=== PATIENT | female | born 1990 | race Caucasian/White ===

== ENCOUNTER 2019-06-14 18:00 | Emergency (ER) | payer MEDICAID ==
[~2019-06-14] VITALS: Ht 177.8 cm; Wt 72.6 kg
[2019-06-14 18:23] VITALS: BP 116/84
== END 2019-06-14 22:09 | disposition left against medical advice (07) ==
LOC: ER 18:04
DX: R10.9 Unspecified abdominal pain (principal); R11.2 Nausea with vomiting, unspecified; Z53.21 Procedure and treatment not carried out due to patient leaving prior to being seen by health care provider

== ENCOUNTER 2024-04-12 09:34 | Emergency (ER) | payer MEDICAID ==
[~2024-04-12] VITALS: Ht 162.6 cm; Wt 55.5 kg
[2024-04-12 10:00] VITALS: TEMP 98.7
[2024-04-12 10:25] VITALS: BP 148/82; PULSE 102; RESP 16; O2SAT 98
[2024-04-12] MEDS: ONDANSETRON ODT 4 MG TAB PO ONE (10:37)
[2024-04-12] MEDS ORDERED: ZOFR4T PO (11:08)
== END 2024-04-12 15:53 | disposition home or self-care (01) ==
LOC: ER 09:41
DX: T18.8XXA Foreign body in other parts of alimentary tract, initial encounter (principal); R11.2 Nausea with vomiting, unspecified; F17.210 Nicotine dependence, cigarettes, uncomplicated; F12.10 Cannabis abuse, uncomplicated; W44.8XXA Other foreign body entering into or through a natural orifice, initial encounter; Y93.89 Activity, other specified; Y92.89 Other specified places as the place of occurrence of the external cause; Y99.8 Other external cause status
CPT/HCPCS: 74018; 99283; Q0162

== ENCOUNTER 2024-05-14 09:43 | Inpatient (IN) | payer MEDICAID ==
[~2024-05-14] VITALS: Ht 162.6 cm; Wt 60.1 kg
[~2024-05-14 09:43] MED LIST: ZOFR4T PO
[2024-05-14 10:05] VITALS: PULSE 87; RESP 12; O2SAT 97
[2024-05-14 10:59] LABS: Eosinophils # (auto) 0.2 10 ^3/uL (0-0.8); Lymphocytes % (auto) 22.1 % (10.0-50.0); Monocytes # (auto) 0.3 10 ^3/uL (0-1.3)
[2024-05-14 11:01] LABS: Basophils # (auto) 0.1 10 ^3/uL (0-0.2); Basophils % (auto) 1.4 % (0.0-2.0); Eosinophils % (auto) 3.2 % (0.0-7.0); Hematocrit 42.3 % (36.0-46.0); Hemoglobin 14.8 g/dL (12.2-16.2); Lymphocytes # (auto) 1.2 10 ^3/uL (0.4-5.4); Mean Corpuscular Hgb Conc. 35.1 g/dL (32.0-36.0); Mean Corpuscular Volume 99.7 fL (80.0-100.0); Neutrophils # (auto) 3.6 10 ^3/uL (1.6-8.6); Neutrophils % (auto) 68.3 % (37.0-80.0); Nucleated Red Blood Cells % 0.2 %; Platelet Count (auto) 246 10^3/uL (140-450); Red Blood Cells 4.24 10^6/uL (4.0-5.20); White Blood Cell 5.2 10^3/uL (4.4-10.8)
[2024-05-14 11:14] LABS: Alanine Aminotransferase 30 U/L (7-40); Albumin 4.2 g/dL (3.2-4.8); Alkaline Phosphatase 58 U/L (46-116); Anion Gap 6 (5-15); Aspartate Aminotransferase 30 U/L (13-40); BUN/Creatinine Ratio 11.9 (10.0-20.0); Blood Urea Nitrogen 10 mg/dL (9-23); Calcium 9.6 mg/dL (8.7-10.4); Carbon Dioxide 26 mmol/L (20-31); Chloride 107 mmol/L (98-107); Glucose 118 mg/dL (74-106); Potassium 3.7 mmol/L (3.5-5.1); Sodium 139 mmol/L (136-145)
[2024-05-14 11:15] LABS: Total Protein 6.7 g/dL (5.7-8.2)
[2024-05-14 12:00] LABS: Platelet Estimate Adequate; Stomatocytes Few
[2024-05-14] MEDS: PANTOPRAZOLE 40 MG/10 ML VIAL INJ IV ONE ×2 (12:01→15:00)
[2024-05-14 14:18] LABS: Urine Bacteria None Seen /hpf (None Seen)
[2024-05-14 14:25] LABS: Urine Blood 1+ /uL (Negative); Urine Clarity Turbid (Clear); Urine Color Yellow (Yellow); Urine Mucus FEW (None Seen); Urine Protein, UAD TRACE (Negative); Urine Specific Gravity 1.025 (1.001-1.035); Urine Urobilinogen 2 mg/dL (Negative); Urine WBC 3 /hpf (0 - 5)
[2024-05-14] MEDS ORDERED: NITROGLYCERIN 0.4 MG SL TAB SL PRN (15:00)
[2024-05-14] MEDS ORDERED: DOCUSATE SOD 100 MG CAP PO PRN (15:00)
[2024-05-14] MEDS: PANTOPRAZOLE 40 MG/10 ML VIAL INJ IV SCH (15:27)
[2024-05-14] MEDS: SODIUM CHLORIDE 0.9% 1,000 ML IV SCH (15:33)
[2024-05-14] MEDS: MORPHINE SULFATE INJ 2 MG/ml SYRG IV PRN (15:35)
[2024-05-14] MEDS: ONDANSETRON HCL 4 MG/2 ML VIAL IV PRN (15:36)
[2024-05-14 16:45] VITALS: BP 126/88; PULSE 55; RESP 16; TEMP 98; O2SAT 98
[2024-05-14 17:37] VITALS: O2SAT 96
[2024-05-14] MEDS ORDERED: ONDANSETRON HCL 4 MG/2 ML VIAL IV PRN (18:15)
[2024-05-14 20:00] VITALS: PULSE 56; RESP 19; O2SAT 98
[2024-05-14 22:40] LABS: Hematocrit 38.3 % (36.0-46.0); Hemoglobin 13.3 g/dL (12.2-16.2)
[2024-05-14 23:06] VITALS: BP 120/84; PULSE 56; RESP 19; TEMP 97.7; O2SAT 98
[2024-05-15 05:53] VITALS: BP 109/67; PULSE 70; RESP 20; TEMP 97.7; O2SAT 96
[2024-05-15 07:24] LABS: Basophils # (auto) 0 10 ^3/uL (0-0.2); Basophils % (auto) 0.9 % (0.0-2.0); Eosinophils # (auto) 0.2 10 ^3/uL (0-0.8); Eosinophils % (auto) 4.7 % (0.0-7.0); Hematocrit 36.9 % (36.0-46.0); Hemoglobin 13.1 g/dL (12.2-16.2); Lymphocytes # (auto) 1.4 10 ^3/uL (0.4-5.4); Lymphocytes % (auto) 28.6 % (10.0-50.0); Mean Corpuscular Hemoglobin 35.3 pg (28.0-32.0); Mean Corpuscular Hgb Conc. 35.4 g/dL (32.0-36.0); Mean Corpuscular Volume 99.5 fL (80.0-100.0); Monocytes # (auto) 0.3 10 ^3/uL (0-1.3); Monocytes % (auto) 6.1 % (0.0-12.0); Neutrophils # (auto) 2.8 10 ^3/uL (1.6-8.6); Neutrophils % (auto) 59.7 % (37.0-80.0); Platelet Count (auto) 200 10^3/uL (140-450); Red Blood Cells 3.71 10^6/uL (4.0-5.20); Red Cell Distribution Width 12.8 % (11.8-14.3); White Blood Cell 4.8 10^3/uL (4.4-10.8)
[2024-05-15 07:45] LABS: Alanine Aminotransferase 24 U/L (7-40); Albumin 3.5 g/dL (3.2-4.8); Alkaline Phosphatase 50 U/L (46-116); Anion Gap 6 (5-15); Aspartate Aminotransferase 20 U/L (13-40); Blood Urea Nitrogen 8 mg/dL (9-23); Calcium 8.6 mg/dL (8.7-10.4); Carbon Dioxide 25 mmol/L (20-31); Chloride 111 mmol/L (98-107); Glucose 83 mg/dL (74-106); Potassium 3.5 mmol/L (3.5-5.1); Sodium 142 mmol/L (136-145)
[2024-05-15 07:46] LABS: Bilirubin, Total 0.8 mg/dL (0.2-1.0); Total Protein 5.6 g/dL (5.7-8.2)
[2024-05-15 09:00] VITALS: BP 116/80; PULSE 54; RESP 22; TEMP 97.5; O2SAT 98
[2024-05-15 11:15] LABS: Hematocrit 35.6 % (36.0-46.0); Hemoglobin 12.4 g/dL (12.2-16.2)
[2024-05-15 13:00] VITALS: BP 117/77; PULSE 60; RESP 16; TEMP 98; O2SAT 98
[2024-05-15 17:00] VITALS: BP 106/75; PULSE 52; RESP 16; TEMP 97.5; O2SAT 95
[2024-05-15] MEDS: HYDROcodone-ACET 5/325MG TAB PO PRN (17:55)
[2024-05-15 20:00] VITALS: RESP 20
[2024-05-15 21:00] VITALS: BP 121/85; PULSE 50; RESP 20; TEMP 97.6; O2SAT 100
[2024-05-15 22:45] LABS: Hematocrit 35.1 % (36.0-46.0); Hemoglobin 12.1 g/dL (12.2-16.2)
[2024-05-16] VITALS (7 sets, daily range): BP systolic 101–147; BP diastolic 77–98; PULSE 52–71; RESP 16–20; TEMP 97.6–98.2; O2SAT 97–100
[2024-05-16 07:41] LABS: Basophils # (auto) 0 10 ^3/uL (0-0.2); Basophils % (auto) 0.8 % (0.0-2.0); Eosinophils # (auto) 0.2 10 ^3/uL (0-0.8); Eosinophils % (auto) 3.8 % (0.0-7.0); Hematocrit 36.6 % (36.0-46.0); Hemoglobin 12.9 g/dL (12.2-16.2); Lymphocytes # (auto) 1.3 10 ^3/uL (0.4-5.4); Mean Corpuscular Hemoglobin 35.2 pg (28.0-32.0); Mean Corpuscular Hgb Conc. 35.2 g/dL (32.0-36.0); Monocytes # (auto) 0.2 10 ^3/uL (0-1.3); Monocytes % (auto) 5.1 % (0.0-12.0); Neutrophils # (auto) 2.7 10 ^3/uL (1.6-8.6); Neutrophils % (auto) 60.3 % (37.0-80.0); Platelet Count (auto) 188 10^3/uL (140-450); Red Blood Cells 3.66 10^6/uL (4.0-5.20); White Blood Cell 4.5 10^3/uL (4.4-10.8)
[2024-05-16 07:49] LABS: Chloride 111 mmol/L (98-107); Potassium 3.8 mmol/L (3.5-5.1); Sodium 143 mmol/L (136-145)
[2024-05-16 07:50] LABS: Anion Gap 6 (5-15); Calcium 8.3 mg/dL (8.7-10.4); Carbon Dioxide 26 mmol/L (20-31)
[2024-05-16 07:55] LABS: BUN/Creatinine Ratio 5.9 (10.0-20.0); Blood Urea Nitrogen 5 mg/dL (9-23); Glucose 93 mg/dL (74-106)
[2024-05-17 01:00] VITALS: BP 134/73; PULSE 59; RESP 16; TEMP 97.8; O2SAT 98
[2024-05-17 05:00] VITALS: BP 130/79; PULSE 122; RESP 19; TEMP 100.3; O2SAT 95
[2024-05-17 07:52] LABS: Basophils # (auto) 0 10 ^3/uL (0-0.2); Eosinophils # (auto) 0.2 10 ^3/uL (0-0.8); Lymphocytes # (auto) 1.5 10 ^3/uL (0.4-5.4); Neutrophils # (auto) 3.3 10 ^3/uL (1.6-8.6); White Blood Cell 5.3 10^3/uL (4.4-10.8)
[2024-05-17 07:55] LABS: Basophils % (auto) 0.5 % (0.0-2.0); Eosinophils % (auto) 4.3 % (0.0-7.0); Hematocrit 34.7 % (36.0-46.0); Hemoglobin 12.4 g/dL (12.2-16.2); Lymphocytes % (auto) 28.4 % (10.0-50.0); Mean Corpuscular Hemoglobin 35.5 pg (28.0-32.0); Mean Corpuscular Hgb Conc. 35.8 g/dL (32.0-36.0); Mean Corpuscular Volume 99.1 fL (80.0-100.0); Monocytes # (auto) 0.3 10 ^3/uL (0-1.3); Monocytes % (auto) 4.9 % (0.0-12.0); Neutrophils % (auto) 61.9 % (37.0-80.0); Nucleated Red Blood Cells % 0.1 %; Platelet Count (auto) 180 10^3/uL (140-450); Red Cell Distribution Width 12.8 % (11.8-14.3)
[2024-05-17 08:34] LABS: Chloride 111 mmol/L (98-107); Potassium 3.7 mmol/L (3.5-5.1); Sodium 142 mmol/L (136-145)
[2024-05-17 08:35] LABS: Anion Gap 7 (5-15); Carbon Dioxide 24 mmol/L (20-31)
[2024-05-17 08:36] LABS: Calcium 8.5 mg/dL (8.7-10.4)
[2024-05-17 08:40] LABS: Glucose 86 mg/dL (74-106)
[2024-05-17 08:44] LABS: BUN/Creatinine Ratio 6.6 (10.0-20.0); Blood Urea Nitrogen < 5 mg/dL (9-23)
[2024-05-17] MEDS ORDERED: THROAT LOZENGES(CEPASTAT) MT PRN (12:15)
[2024-05-17 13:00] VITALS: BP 124/94; PULSE 76; RESP 18; TEMP 97.9; O2SAT 99
[2024-05-17 17:00] VITALS: BP 117/82; PULSE 62; RESP 16; TEMP 97.7; O2SAT 99
[2024-05-17 21:00] VITALS: BP 126/99; PULSE 75; RESP 16; TEMP 97.3; O2SAT 97
[2024-05-18] VITALS (9 sets, daily range): BP systolic 105–129; BP diastolic 68–86; PULSE 53–72; RESP 15–19; TEMP 97.6–98.4; O2SAT 96–100
[2024-05-18 07:40] LABS: Chloride 106 mmol/L (98-107); Potassium 3.8 mmol/L (3.5-5.1); Sodium 139 mmol/L (136-145)
[2024-05-18 07:41] LABS: Anion Gap 5 (5-15); Carbon Dioxide 28 mmol/L (20-31)
[2024-05-18 07:42] LABS: Calcium 8.9 mg/dL (8.7-10.4)
[2024-05-18 07:46] LABS: BUN/Creatinine Ratio 7.1 (10.0-20.0); Blood Urea Nitrogen 6 mg/dL (9-23); Glucose 97 mg/dL (74-106)
[2024-05-18 07:47] LABS: Eosinophils # (auto) 0.3 10 ^3/uL (0-0.8); Eosinophils % (auto) 5.2 % (0.0-7.0); Monocytes # (auto) 0.3 10 ^3/uL (0-1.3)
[2024-05-18 07:51] LABS: Basophils # (auto) 0 10 ^3/uL (0-0.2); Basophils % (auto) 0.6 % (0.0-2.0); Hematocrit 38.1 % (36.0-46.0); Hemoglobin 13.6 g/dL (12.2-16.2); Lymphocytes % (auto) 16.7 % (10.0-50.0); Mean Corpuscular Hemoglobin 34.9 pg (28.0-32.0); Mean Corpuscular Hgb Conc. 35.6 g/dL (32.0-36.0); Mean Corpuscular Volume 98.1 fL (80.0-100.0); Monocytes % (auto) 5.3 % (0.0-12.0); Neutrophils # (auto) 4.1 10 ^3/uL (1.6-8.6); Neutrophils % (auto) 72.2 % (37.0-80.0); Platelet Count (auto) 206 10^3/uL (140-450); Red Blood Cells 3.89 10^6/uL (4.0-5.20); Red Cell Distribution Width 12.9 % (11.8-14.3); White Blood Cell 5.7 10^3/uL (4.4-10.8)
[2024-05-18] MEDS ORDERED: SODIUM CHLORIDE LOCK 10 ML ONE (09:34)
[2024-05-18] MEDS: LIDOCAINE VISCOUS 2% 15ML UD ONE (13:27)
[2024-05-18] MEDS: MIDAZOLAM HCL 5 MG/ML-1ML VIAL ONE (13:33)
[2024-05-18] MEDS: diphenhdrAMINE HCL 50 MG/1 ML VL ONE (13:33)
[2024-05-18] MEDS: fentaNYL CITRATE 100 MCG/2 ML VL ONE (13:33)
[2024-05-18] MEDS: SUCRALFATE 1 GM/10 ML ORAL SUSP GT SCH (22:31)
[2024-05-19 05:00] VITALS: BP 112/73; PULSE 73; RESP 19; TEMP 98.1; O2SAT 98
[2024-05-19 07:05] LABS: Eosinophils # (auto) 0.3 10 ^3/uL (0-0.8); Hematocrit 39.1 % (36.0-46.0); Hemoglobin 13.8 g/dL (12.2-16.2); Lymphocytes # (auto) 1.4 10 ^3/uL (0.4-5.4); Mean Corpuscular Volume 98.6 fL (80.0-100.0); Monocytes # (auto) 0.4 10 ^3/uL (0-1.3); Nucleated Red Blood Cells % 0.1 %; White Blood Cell 6.6 10^3/uL (4.4-10.8)
[2024-05-19 07:06] LABS: Anion Gap 6 (5-15); Calcium 8.9 mg/dL (8.7-10.4); Carbon Dioxide 27 mmol/L (20-31); Chloride 107 mmol/L (98-107); Potassium 3.9 mmol/L (3.5-5.1); Sodium 140 mmol/L (136-145)
[2024-05-19 07:08] LABS: Basophils # (auto) 0.1 10 ^3/uL (0-0.2); Basophils % (auto) 0.8 % (0.0-2.0); Mean Corpuscular Hemoglobin 34.7 pg (28.0-32.0); Mean Corpuscular Hgb Conc. 35.2 g/dL (32.0-36.0); Monocytes % (auto) 5.8 % (0.0-12.0); Neutrophils # (auto) 4.5 10 ^3/uL (1.6-8.6); Neutrophils % (auto) 67.4 % (37.0-80.0); Platelet Count (auto) 209 10^3/uL (140-450); Red Blood Cells 3.96 10^6/uL (4.0-5.20); Red Cell Distribution Width 13.1 % (11.8-14.3)
[2024-05-19 07:12] LABS: Blood Urea Nitrogen 5 mg/dL (9-23); Glucose 116 mg/dL (74-106)
[2024-05-19 08:00] VITALS: PULSE 71; RESP 15; O2SAT 98
[2024-05-19 09:00] VITALS: BP 110/77; PULSE 71; RESP 15; TEMP 98.2; O2SAT 98
[2024-05-19 11:10] VITALS: BP 110/77; PULSE 71; RESP 15; TEMP 98.2; O2SAT 98
[2024-05-19] MEDS ORDERED: SUCR1TAB31 OR (11:37)
[2024-05-19] MEDS ORDERED: PANT40TA2 PO (11:37)
[2024-05-19 17:00] VITALS: BP 93/50; PULSE 99; RESP 16; TEMP 98.2; O2SAT 93
== END 2024-05-19 11:35 | disposition home or self-care (01) | DRG 241 ==
LOC: ER 09:43 → OVERFLOW 14:59 → WEST WING 16:30
PROVIDERS: ADMIT Internal Medicine; ATTEND Internal Medicine
PROC: 0DB68ZX Excision of Stomach, Via Natural or Artificial Opening Endoscopic, Diagnostic (ICD-10-PCS; 2024-05-18)
PROC: 0DB98ZX Excision of Duodenum, Via Natural or Artificial Opening Endoscopic, Diagnostic (ICD-10-PCS; principal; 2024-05-18 13:18)
DX: K29.01 Acute gastritis with bleeding (principal); F10.10 Alcohol abuse, uncomplicated; K52.9 Noninfective gastroenteritis and colitis, unspecified; K44.9 Diaphragmatic hernia without obstruction or gangrene; K29.80 Duodenitis without bleeding; F12.10 Cannabis abuse, uncomplicated; F17.210 Nicotine dependence, cigarettes, uncomplicated; J45.909 Unspecified asthma, uncomplicated; Z98.891 History of uterine scar from previous surgery; Z85.43 Personal history of malignant neoplasm of ovary; Y90.9 Presence of alcohol in blood, level not specified
CPT/HCPCS: 36415; 43239; 74176; 76705; 78226; 80048; 80053; 81001; 83690; 84443; 84702; 85014; 85018; 85025; 86141; 93306; 96374; 99291; G0378; J2250; J2405; J2470

== ENCOUNTER 2024-06-12 01:23 | Emergency (ER) | payer MEDICAID ==
[~2024-06-12] VITALS: Ht 162.6 cm; Wt 58.0 kg
[~2024-06-12 01:23] MED LIST changes: +PANT40TA2 PO; +SUCR1TAB31 OR
[2024-06-12 01:30] VITALS: BP 114/88; PULSE 92; RESP 16; O2SAT 96
== END 2024-06-12 02:18 | disposition left against medical advice (07) ==
LOC: ER 01:23
DX: S00.81XA Abrasion of other part of head, initial encounter (principal); F12.10 Cannabis abuse, uncomplicated; F15.10 Other stimulant abuse, uncomplicated; Z79.899 Other long term (current) drug therapy; Z91.040 Latex allergy status; W01.0XXA Fall on same level from slipping, tripping and stumbling without subsequent striking against object, initial encounter; Y93.89 Activity, other specified; Y92.89 Other specified places as the place of occurrence of the external cause; Y99.8 Other external cause status

== ENCOUNTER → 2024-09-27 | Outpatient (CLI) | payer MEDICAID ==
[2024-09-27 11:22] LABS: Basophils # (auto) 0.1 10 ^3/uL (0-0.2); Basophils % (auto) 1.2 % (0.0-2.0); Eosinophils # (auto) 0.1 10 ^3/uL (0-0.8); Eosinophils % (auto) 1.4 % (0.0-7.0); Hematocrit 43.6 % (36.0-46.0); Hemoglobin 14.5 g/dL (12.2-16.2); Lymphocytes # (auto) 1.7 10 ^3/uL (0.4-5.4); Lymphocytes % (auto) 22.9 % (10.0-50.0); Mean Corpuscular Hemoglobin 33.1 pg (28.0-32.0); Mean Corpuscular Hgb Conc. 33.4 g/dL (32.0-36.0); Mean Corpuscular Volume 99.2 fL (80.0-100.0); Monocytes # (auto) 0.4 10 ^3/uL (0-1.3); Monocytes % (auto) 5.8 % (0.0-12.0); Neutrophils % (auto) 68.7 % (37.0-80.0); Platelet Count (auto) 319 10^3/uL (140-450); Red Blood Cells 4.39 10^6/uL (4.0-5.20); Red Cell Distribution Width 12.7 % (11.8-14.3); White Blood Cell 7.3 10^3/uL (4.4-10.8)
== END | disposition home or self-care (01) ==
LOC: LAB 10:44
PROVIDERS: ATTEND Internal Medicine
DX: K29.01 Acute gastritis with bleeding (principal)
CPT/HCPCS: 36415; 85025